=== PATIENT | female | born 1940 | race Caucasian/White ===

== ENCOUNTER → 2017-11-30 15:45 | Outpatient (CLI) | payer MEDICARE, OTHER, SELFPAY ==
--- NOTE | 2017-11-30 15:48 | DI.RAD.S_ITS ---
PROCEDURE: XR PELVIS 1-2V INDICATIONS: pelvic pain TECHNIQUE: Single frontal view of the pelvis acquired. COMPARISON: None. FINDINGS: Bones: No fractures or dislocations. Note is made of severe right hip joint distortion and degeneration, with superior subluxation of the remaining femoral head cephalad in relationship to normal anatomic position. Subchondral cyst formation is prominent at the right hip joint, and old trauma or old avascular necrosis may explain the degree of distortion present. Moderate left hip osteoarthritis. No suspicious bony lesions. Soft tissues: Visualized bowel gas pattern is normal. No suspicious soft tissue calcifications. IMPRESSION: Severe degenerative change and distortion right hip joint, to the degree that old trauma or old avascular necrosis with [id number] articulation and extensive subchondral cyst formation with superior subluxation of the degenerated acetabular components has developed over an extended period of time. Old comparison films would be very helpful in establishing the chronicity of this abnormality and the potential etiology. Moderate left hip osteoarthritis, no acute trauma. Dictated by: Mauricio Duncan M.D. on 12/01/2017 at 8:26 Approved by: Mauricio Duncan M.D. on 12/01/2017 at 8:28
--- NOTE | 2017-11-30 15:48 | DI.RAD.S_ITS ---
PROCEDURE: XR THORACIC SPINE 3V INDICATIONS: back pain TECHNIQUE: 12 views of the thoracic spine were acquired. COMPARISON: [facility], CR, XR LUMBAR SPINE 2-3V, 11/30/2017, 16:20. FINDINGS: Bones: No definite acute fractures or dislocations but there is a moderately severe T12 compression fracture with near vertebra plana morphology. Degenerative disc disease and facet osteoarthritis along the low thoracic spine is moderately severe to severe and partially obscured by degenerative osteophyte formation and presence of convex right with scoliosis with compensatory convex leftward scoliosis more inferiorly. No suspicious bony lesions. 12 pairs of ribs are noted, and appear intact where visualized. Soft tissues: No paravertebral stripe thickening. IMPRESSION: Age-indeterminate T12 moderately severe compression fracture with superimposed generalized degenerative disc disease and facet osteoarthritis is prominent over the lower half of the thoracic spine. Convex rightward scoliosis at the midthoracic spine is associated with convex leftward scoliosis at the thoracolumbar junction and upper lumbosacral spine. Old comparison films would be very helpful in more accurately assessing chronicity of the T12 compression fracture. Depending on clinical status followup by MR scanning may be warranted. Dictated by: Mauricio Duncan M.D. on 12/01/2017 at 8:28 Approved by: Mauricio Duncan M.D. on 12/01/2017 at 8:31
--- NOTE | 2017-11-30 15:48 | DI.RAD.S_ITS ---
PROCEDURE: XR LUMBAR SPINE 2-3V INDICATIONS: back pain TECHNIQUE: 3 views of the lumbar spine were acquired. COMPARISON: [facility], CR, XR THORACIC SPINE 3V, 11/30/2017, 16:20. [facility], CR, XR PELVIS 1-2V, 11/30/2017, 16:20. FINDINGS: Bones: 5 [id number] vertebrae are present. 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 There is a T12 moderately severe vertebral body compression fracture, age-indeterminate. No suspicious bony lesions. Soft tissues: Overlying bowel gas pattern is normal. No suspicious soft tissue calcifications. IMPRESSION: Moderately severe to severe degenerative disc disease and facet osteoarthritis along the lumbosacral spine, and there is a moderately severe T12 compression fracture of uncertain chronicity with near vertebra plana morphology. MR scanning can be utilized to discriminate between chronic versus acute compression fracture. Old comparison films would be very helpful in more accurately assessing this area. Dictated by: Mauricio Duncan M.D. on 12/01/2017 at 8:24 Approved by: Mauricio Duncan M.D. on 12/01/2017 at 8:26
[2017-11-30 16:44] LABS: Add Manual Diff / Slide Review NO; Basophils Percent Auto 0.6 % (0-2); Eosinophils Percent Auto 4.5 % (2-4); Hematocrit 30.7 % (36-46); Hemoglobin 10.4 g/dL (12.0-16.0); Lymphocytes Percent Auto 21.9 % (25-40); Mean Corpuscular HGB Conc 33.8 % (30-36); Mean Corpuscular Volume 97.7 fL (80-100); Monocytes Percent Auto 12.1 % (3-14); Neutrophils Absolute Auto 4300 /uL (3000-5900); Neutrophils Percent Auto 60.9 % (50-75); Platelet Count 411 X10^3/uL (150-400); Red Blood Cell Count 3.15 X10^6/uL (4.0-5.2); Red Cell Distribution Width 13.5 % (11.6-14.8); White Blood Cell Count 7.1 X10^3/uL (4.5-11.0)
[2017-11-30 17:26] LABS: Alanine Aminotransferase 16 IU/L (9-52); Albumin 3.8 g/dL (3.5-5.0); Albumin Globulin Ratio 1.2 (1.0-2.8); Alkaline Phosphatase 70 U/L (38-126); Aspartate Aminotransferase 23 IU/L (14-36); BUN Creatinine Ratio 16.7 (6-22); Bilirubin Total 0.3 mg/dL (0.2-1.3); Blood Urea Nitrogen 15 mg/dL (7-17); Calcium 9.1 mg/dL (8.4-10.2); Carbon Dioxide 24 mmol/L (22-32); Chloride 97 mmol/L (98-107); Estimated Glomerular Filt Rate > 60.0 mL/min (>60); Globulin 3.2 g/dL (1.7-4.1); Glucose 87 mg/dL (80-110); HEMOLYSIS < 15 (0-50); Potassium 4.2 mmol/L (3.4-5.1); Sodium 131 mmol/L (137-145)
== END ==
PROVIDERS: Family Provider Chiropractor; PCP Internal Medicine; Visit Provider Internal Medicine
DX: R10.2 Pelvic and perineal pain (principal); M54.9 Dorsalgia, unspecified; I10 Essential (primary) hypertension; E78.2 Mixed hyperlipidemia; I25.10 Atherosclerotic heart disease of native coronary artery without angina pectoris; D64.9 Anemia, unspecified
CPT/HCPCS: 36415; 72072; 72100; 72170; 80053; 85025